=== PATIENT | female | born 1965 | race Caucasian/White ===

== ENCOUNTER 2016-08-06 07:01 | Emergency (ER) | payer OTHER ==
[2016-08-06] MEDS ORDERED: IOPAMIDOL 370 (76%) 100 ML VIAL IV ONE (07:02)
[2016-08-06] MEDS ORDERED: ONDANSETRON 4 MG/2ML 2 ML VIAL ONE (07:20)
[2016-08-06] MEDS ORDERED: SODIUM CHLORIDE 0.9% 1,000 ML ONE (07:20)
[2016-08-06 07:44] LABS: ABSOLUTE NEUTROPHIL COUNT 12.2 K/mm3 (1.8-7.7); BASO % 0.3 % (0.2-1.0); EOS # 0.2 (0.0-0.5); EOS % 1.3 % (0.9-2.9); HEMOGLOBIN 15.7 gm/l (12.0-16.0); IMM NEUT # 0.1 K/mm3 (0-0.2); IMM NEUT% 0.5 % (0-1); LYMPH # 0.6 (1.0-4.8); LYMPH % 4.5 % (15-45); MEAN CELL VOLUME 83.6 fl (81.0-99.0); MEAN CORPUSCULAR HEMOGLOBIN 27.9 pg (27.0-31.0); MEAN CORPUSCULAR HGB CONC 33.4 g/dl (33.0-37.0); MONO # 0.4 (0.0-0.8); NEUT % 90.4 % (43-75); PLATELET COUNT 210 K/mm3 (130-400); RED CELL DISTRIBUTION WIDTH 12.8 % (11.5-14.5)
--- NOTE | 2016-08-06 07:53 | RAD ---
CHEST - 2 VIEWS COMPARISON: None. HISTORY: Upper respiratory infection for a couple of weeks. 2 days ago, diarrhea and vomiting. Heart palpitations and weakness today. FINDINGS: Views: Frontal and lateral chest Lungs: Decreased volume of the left lung base with elevated left hemidiaphragm. Bilateral horizontal opacities/subsegmental atelectasis. Heart and vessels: Normal Trachea and bronchi: Normal Mediastinum and ino: Normal Costophrenic sulci: Normal Chest wall and bones: Superimposed or within the proximal diaphysis of the left humerus, 2.9 x 1.5 cm calcification. Upper abdomen: Normal. IMPRESSION: 1. Bilateral subsegmental atelectasis. This does not completely exclude pneumonia. 2. Within or superimposed on the proximal left humerus, 2.9 x 1.5 cm calcification. A benign enchondroma is favored.
[2016-08-06 07:57] LABS: URINE BILIRUBIN NEGATIVE (NEGATIVE); URINE BLOOD TRACE (NEGATIVE); URINE GLUCOSE (UA) NEGATIVE (NEGATIVE); URINE LEUKOCYTE ESTERASE 2+ (NEGATIVE); URINE NITRITE NEGATIVE (NEGATIVE); URINE PROTEIN TRACE (NEGATIVE); URINE UROBILINOGEN NORMAL (0-1 mg/dl)
[2016-08-06 07:59] LABS: URINE APPEARANCE HAZY; URINE COLOR YELLOW
[2016-08-06 08:04] LABS: URINE BACTERIA FEW; URINE MUCUS 1+; URINE RBC 0-2 /hpf
[2016-08-06 08:09] LABS: ALB/GLOB RATIO 1.7 (>1.0); ALBUMIN 4.5 gm/dL (3.5-5.7); CALCIUM 10.2 mg/dL (8.6-10.3)
[2016-08-06] MEDS ORDERED: MAALOX/LIDO2%VISC/SIMETHICONE 40 ML BOT ONE (08:28)
[2016-08-06 08:34] LABS: BAND 0 % (0-10); LYMPHOCYTE 5 % (15-45); MONOCYTE 4 % (4-12); NEUTROPHILS 90 % (43-75); TOTAL CELLS COUNTED 100
[2016-08-06 08:35] LABS: BASOPHIL 0 % (0-1); EOSINOPHIL 1 % (1-3); PLATELET ESTIMATE NORMAL (NORMAL)
[2016-08-06] MEDS ORDERED: PROMETHAZINE HCL 25 MG/ML VIAL ONE (09:54)
[2016-08-06] MEDS ORDERED: LACTATED RINGERS 1,000 ML ONE (09:54)
[2016-08-06 10:44] LABS: TROPONIN I < 0.01 ng/ml (0.0-0.06)
--- NOTE | 2016-08-06 10:46 | CT ---
CTA CHEST FOR PE COMPARISON: Chest 2 views, 08/06/2016 HISTORY: Shortness of breath. Technique: Intravenous injection 80 mL of Isovue-370. Using a [employer] Aquilion [address] scanner, following a CT angiogram protocol, images obtained through the thorax. Under concurrent supervision and interpretation, not requiring a separate 3-D workstation, the technologist created 3-D CT angiograms. An automated dose reduction technique was used to minimize patient radiation dose. Dose information: CTDIvol (mGy): 7.70, 7.70, 23.80 DLP(mGycm): 828.20 FINDINGS: Pulmonary arteries and veins: Adequate contrast opacification. No pulmonary embolism. Aorta: Normal Heart and coronary arteries: Normal. Lungs: In both lung bases, subsegmental atelectasis. No pneumonia. Trachea and bronchi: Normal. Mediastinum and ino: No lymphadenopathy or free fluid. The distal esophagus is distended with fluid and air. Pleura and pericardium: Normal. Chest wall: Normal. Spine: Normal. Upper abdomen: Low-attenuation of liver from fatty infiltration. 3-D CT angiogram: Normal. IMPRESSION: 1. No pulmonary embolus. 2. Subsegmental atelectasis in both lung bases. 3. The distal esophagus is distended with fluid and air. Probable gastroesophageal reflux. 4. Fatty infiltration of liver. The [facility] 08/06/2016 at 10:47.
[2016-08-06 10:49] LABS: CKMB ISOENZYME 2.7 ng/ml (0.6-6.3)
== END 2016-08-06 13:44 | disposition home or self-care (01) ==
LOC: ED 07:01
DX: R11.2 Nausea with vomiting, unspecified (principal); J45.909 Unspecified asthma, uncomplicated; R00.2 Palpitations
CPT/HCPCS: 83880; 85025; 82550; 82553; 80053; 84484; 81001; 71020; 71275; 87804; 96375; 99284 ×2; 96374; 96361 ×2; 93005; A9270; J2550; J2405; J7120; J7030; Q9967